=== PATIENT | female | born 1990 | race Hispanic/Latino ===

== ENCOUNTER 2019-02-14 17:41 | Emergency (ER) | payer SELFPAY ==
[~2019-02-14] VITALS: Ht 160 cm; Wt 95.3 kg
--- OUTSIDE RECORDS SUMMARY | 2019-02-14 17:44 | XMS REPORT ---
Author Author [facility] Address Unknown Phone Unavailable Care Team Providers Care Busgirl Name Role Phone Unavailable Unavailable Problems This patient has no known problems. Allergies, Adverse Reactions, Alerts This patient has no known allergies or adverse reactions. Medications This patient has no known medications. Encounters Start Date/Time End Date/Time Encounter Type Admission Type Attending [facility] [place] Facility Care Department Encounter ID 2017-12-16 00:00:00 2017-12-17 00:00:00 Outpatient [facility] [id number] 2017-11-16 16:32:53 2017-11-16 16:32:53 Emergency [facility] MED [id number]
[2019-02-14 18:15] LABS: BILIRUBIN,URINE NEGATIVE (NEGATIVE); CLARITY,URINE SL CLOUDY (CLEAR); COLOR,URINE YELLOW (YELLOW); KETONES,URINE NEGATIVE (NEGATIVE); LEUKOCYTE ESTERASE ,URINE MODERATE (NEGATIVE); NITRITE,URINE NEGATIVE (NEGATIVE); PROTEIN,URINE DIPSTICK NEGATIVE (NEGATIVE); URINE UROBILINOGEN 0.2 mg/dL (0.2 - 1)
[2019-02-14 18:32] LABS: BACTERIA,URINE MODERATE /HPF; EPITHELIAL CELLS,URINE FEW /LPF; RBC,URINE 0-5 /HPF (0-5)
[2019-02-14] MEDS ORDERED: KETOROLAC TROMETHAMINE 60 MG/2 ML VIAL IM ONE (18:45)
[2019-02-14] MEDS ORDERED: DEXAMETHASONE SOD PHOS 10 MG/1 ML VIAL IM ONE (18:45)
[2019-02-14] MEDS ORDERED: CEPHALEXIN 500 MG CAP PO ONE (18:45)
[2019-02-14 19:42] VITALS: BP 155/76
== END 2019-02-14 19:45 | disposition home or self-care (01) ==
LOC: ER 17:41
DX: R30.0 Dysuria (principal); N30.91 Cystitis, unspecified with hematuria
CPT/HCPCS: 81001; 81025; 99283; J1100; J1885

== ENCOUNTER 2020-03-10 10:05 | Emergency (ER) | payer SELFPAY ==
[~2020-03-10] VITALS: Ht 160 cm; Wt 95.3 kg
[2020-03-10 10:39] LABS: CLARITY,URINE CLEAR (CLEAR); COLOR,URINE YELLOW (YELLOW); LEUKOCYTE ESTERASE ,URINE TRACE (NEGATIVE); NITRITE,URINE NEGATIVE (NEGATIVE)
[2020-03-10 10:40] LABS: KETONES,URINE NEGATIVE (NEGATIVE); PREGNANCY TEST, URINE NEGATIVE (NEGATIVE); PROTEIN,URINE DIPSTICK NEGATIVE (NEGATIVE); URINE UROBILINOGEN 0.2 mg/dL (0.2 - 1)
[2020-03-10 10:45] LABS: BACTERIA,URINE FEW /HPF; EPITHELIAL CELLS,URINE FEW /LPF; RBC,URINE 0-5 /HPF (0-5); WBC,URINE (MAN) 0-5 /HPF (0-5)
== END 2020-03-10 11:44 | disposition home or self-care (01) ==
LOC: ER 10:14
DX: K62.89 Other specified diseases of anus and rectum (principal); K64.9 Unspecified hemorrhoids; F41.9 Anxiety disorder, unspecified; F32.9 Major depressive disorder, single episode, unspecified
CPT/HCPCS: 81001; 81025; 87086; 99283